=== PATIENT | male | born 1940 | race Caucasian/White ===

== ENCOUNTER 2020-11-09 10:28 | Emergency (ER) | payer MEDICARE ==
[~2020-11-09] VITALS: Ht 172.7 cm; Wt 68.0 kg
[2020-11-09] MEDS ORDERED: PIPERACILLIN/TAZOBACTAM 4.5 GM in IV NORMAL SALINE 50ML 50 ML IV ONE (11:15)
[2020-11-09] MEDS ORDERED: IV NORMAL SALINE 1,000ML 1,000 ML IV ONE (11:15)
[2020-11-09 11:23] LABS: BASO # 0.1 x10^3/uL (0.0-0.2); BASO % 1 % (0-3); EOS # 0.1 x10^3/uL (0.0-0.7); EOS % 1 % (0-3); HEMATOCRIT 37.2 % (39.0-53.0); LYMPH # 1.2 x10^3/uL (1.0-4.8); LYMPH % 10 % (24-48); MEAN CORPUSCULAR HEMOGLOBIN 25 pg (25-35); MEAN CORPUSCULAR HGB CONC 32 g/dL (31-37); MEAN CORPUSCULAR VOLUME 78 fL (79-100); MONO # 0.6 x10^3/uL (0.0-1.1); MONO % 5 % (0-9); NEUT % 83 % (31-73); PLATELET COUNT 489 x10^3/uL (140-400); RED CELL DISTRIBUTION WIDTH 14.2 % (11.5-14.5)
[2020-11-09 11:28] LABS: CALCIUM 9.2 mg/dL (8.5-10.1); CREATININE 1.4 mg/dL (0.7-1.3); POTASSIUM 4.2 mmol/L (3.5-5.1)
[2020-11-09 11:34] LABS: ALBUMIN 2.7 g/dL (3.4-5.0); ALBUMIN/GLOBULIN RATIO 0.5 (1.0-1.7); TOTAL BILIRUBIN 0.8 mg/dL (0.2-1.0); TOTAL PROTEIN 7.7 g/dL (6.4-8.2)
[2020-11-09] MEDS ORDERED: IV NORMAL SALINE 50ML 50 ML ONE (13:15)
[2020-11-09] MEDS ORDERED: PIPERACILLIN/TAZOBACTAM 4.5 GM VIAL IV ONE (13:16)
--- NOTE | 2020-11-09 13:38 | RAD ---
STUDY: CT of the bilateral lower extremities without contrast INDICATION: Wounds. Infection. COMPARISON: None. TECHNIQUE: Axial CT imaging of the bilateral lower extremities performed without contrast. The field- of-view includes the distal femoral diaphyses through the feet. Coronal and sagittal reformats were o btained. One or more of the following individualized dose reduction techniques were utilized for this examinat ion: 1. Automated exposure control 2. Adjustment of the mA and/or kV according to patient size 3. Use of iterative reconstruction technique. FINDINGS: Subcutaneous fatty reticulation predominantly along the dorsal aspect of the distal thighs to the kne es. Ill-defined popliteal fossa edema bilaterally. On both the right and left below the knees fatty r eticulation becomes circumferential. At the feet, edema is greatest dorsally and slightly more pronou nced on the right. Limited assessment for a drainable fluid collection without contrast. At no specif ic location throughout either lower extremity is there a focal area of confluent fluid attenuation th at would suggest an abscess. No soft tissue gas. At the ventral margin of the more distal lower legs on the right more so than left, the superficial soft tissues are irregular which could represent supe rficial ulceration. Only mild apparent subfascial edema such as superficial to the biceps femoris on both the right and left and mainly along the medial gastrocnemius on both sides. Muscular attenuation is relatively homogeneous. Mild scattered calcific atherosclerosis. Small right and trace left knee joint effusions. Right more so than left knee arthrosis on the right there is greatest involvement of the medial and patellofemor al compartments. No acute fracture, aggressive periostitis or acute-appearing erosion. IMPRESSION: 1. Subcutaneous fatty reticulation circumferentially about the lower legs on the right and left and mostly along the dorsal aspect of the distal thighs and dorsal aspect of the right more so than left feet. This is nonspecific for bland edema or cellulitis. Limited assessment for a drainable fluid col lection without intravenous contrast but there is no localized fluid attenuation or gas to suggest an abscess. 2. There appear to be superficial ulcerations along the anterior aspect of the distal lower legs. Th hannah would be better assessed with visual inspection but appear shallow. No CT manifestations of osteo myelitis. 3. No definitive findings to suggest necrotizing fasciitis noting that this is a clinical diagnosis. Electronically signed by: ARAMIS MARQUEZ MD (11/09/2020 1:36 PM) [facility]
--- NOTE | 2020-11-09 13:41 | RAD ---
PQRS Compliance Statement: One or more of the following individualized dose reduction techniques were utilized for this examinat ion: 1. Automated exposure control 2. Adjustment of the mA and/or kV according to patient size 3. Use of iterative reconstruction technique CT abdomen/pelvis without contrast 11/09/2020 11:33 AM INDICATION: Wound infection COMPARISON: None available TECHNIQUE: Multiple axial CT images of the abdomen and pelvis were obtained without intravenous contr ast. Coronal and sagittal reformats are provided. FINDINGS: Calcified granuloma identified within the right middle lobe and right lower lobe. Lung bases are othe rwise clear. Heart size within normal limits. Small hiatal hernia. Evaluation of solid abdominal visc era is limited by lack of intravenous contrast. Liver, spleen, right adrenal gland, pancreas and gall bladder are normal in appearance. There is fusiform thickening of the medial limb of the left adrenal gland and nodular thickening of the lateral limb of left adrenal gland (15 Hounsfield units), indete rminate. This nodule measures 1.3 x 1.3 cm. Abdominal aorta is normal in course and caliber with mode rate calcified atheromatous plaque. There are no pathologically enlarged lymph nodes in the abdomen. Bilateral borderline inguinal lymph nodes are identified measuring up to 12 mm by short axis in the r ight frontal region (series 2, image 111. There is a 9 mm nonobstructing calculus in inferior pole th e right kidney. There is a 2 mm nonobstructing calculus in interpolar right kidney. Simple renal leanna ical cyst identified in the medial interpolar left kidney measuring 7 mm. There is a simple renal cor tical cyst in the lateral interpolar left kidney measuring 10 mm. There is no hydronephrosis. There a re calculi within the dependent portion of the urinary bladder versus calcification of the bladder wa ll (series 2, image 110). Prostatomegaly measuring 5.5 x 5.4 cm in transverse dimensions. Moderate st ool noted within the rectum. There is mild colonic diverticulosis. No adjacent inflammatory changes a re identified. Appendix is normal in appearance. Urinary bladder is mildly distended measuring 11.0 x 9.3 x 12.7 cm. No suspicious osseous abnormality is identified. Mild sacral decubitus skin thickenin g with subcutaneous edema without ulceration or abscess. IMPRESSION: 1. There is distention of the urinary bladder measuring 11.0 x 9.3 x 12.7 cm. Bladder calculi identif ied within the dependent portion of the urinary bladder. This could represent calcification of the bl adder wall. Further evaluation with cystoscopy could be of benefit. Constellation of findings could r eflect chronic outlet obstruction. 2. Prostatomegaly. 3. Nodular thickening of the left adrenal gland is indeterminate measuring 1.3 x 1.3 cm. Further eval uation with adrenal mass protocol CT is recommended. 4. Nonobstructing calculus in inferior pole the right kidney measuring 9 mm. No hydronephrosis. 5. Small hiatal hernia. 6. Mild colonic diverticulosis. 7. Mild sacral decubitus skin thickening with subcutaneous edema without abscess. Electronically signed by: Nina Elmore MD (11/09/2020 1:39 PM) [id number]
--- NOTE | 2020-11-09 16:38 | PHYS DOC ---
Past History Past Medical History: No Pertinent History Past Surgical History: Other Additional Past Surgical Histo: hernia repair Alcohol Use: None Adult General Chief Complaint Chief Complaint: SKIN PROBLEM HPI HPI Patient is 80-year-old male who presents to the emergency room from home for wounds on bilateral lower extremities. Patient states these wounds have been there for several months and it progressively gotten worse. According to EMS his house appears to be the house of a hoarder. They state that he was sitting in a recliner and him in the recliner were caked in urine and feces. Patient states that he is unable to walk due to the pain that shoots through his legs when he tries to walk. This has been ongoing for a while. He typically spends all of his time sitting in the recliner. That is where he sleeps during the day as well. He is complaining of being hungry. He denies any other pains. Review of Systems Review of Systems Complete ROS is negative unless otherwise documented in HPI Current Medications Current Medications Current Medications Medications (Trade) Dose Ordered Sig/Pollo Start Time Stop Time Status Last Admin Dose Admin Piperacillin Sod/ Tazobactam Sod (Zosyn) 4.5 gm STK-MED ONCE 11/09/20 13:16 11/09/20 13:16 DC Piperacillin Sod/ Tazobactam Sod 4.5 gm/Sodium Chloride 50 ml @ 100 mls/hr 1X ONCE 11/09/20 11:15 11/09/20 11:44 DC 11/09/20 13:27 100 MLS/HR Sodium Chloride 50 ml @ As Directed STK-MED ONCE 11/09/20 13:15 11/09/20 13:16 DC Allergies Allergies Allergies Coded Allergies Type Severity Reaction Last Updated Verified No Known Drug Allergies 11/09/20 No Physical Exam Physical Exam General: Awake, alert, NAD. Cachectic, well hydrated. Cooperative HEENT: Atraumatic, EOMI, PERRL, airway patent, moist oral mucosa Neck: Supple, trachea midline Respiratory: CTA bilaterally, normal effort, no wheezing/crackles CV: Tachycardic, no murmur, cap refill <2 GI: Soft, nondistended, nontender, no masses MSK: No obvious deformities Skin: Buttocks: Large decubitus ulcer that covers the lower back and bilateral buttocks without drainage. Bilateral lower extremities: Erythema that includes bilateral feet and extends up to below the knees with multiple areas of ulceration and breaking of skin from swelling, small areas of serosanguineous drainage as well as white foul-smelling drainage Neuro: A&O x3, speech NL, sensory and motor grossly intact, no focal deficits Psych: Normal affect, normal mood, not suicidal or homicidal Current Patient Data Vital Signs Vital Signs Date Time Temp Pulse Resp B/P (MAP) Pulse Ox O2 Delivery O2 Flow Rate FiO2 11/09/20 10:28 98.1 94 20 129/70 (89) 98 Room Air Lab Results Laboratory Tests Test 11/09/20 10:50 White Blood Count 12.0 x10^3/uL (4.0-11.0) H Red Blood Count 4.80 x10^6/uL (4.30-5.70) Hemoglobin 12.0 g/dL (13.0-17.5) L Hematocrit 37.2 % (39.0-53.0) L Mean Corpuscular Volume 78 fL (79-100) L Mean Corpuscular Hemoglobin 25 pg (25-35) Mean Corpuscular Hemoglobin Concent 32 g/dL (31-37) Red Cell Distribution Width 14.2 % (11.5-14.5) Platelet Count 489 x10^3/uL (140-400) H Neutrophils (%) (Auto) 83 % (31-73) H Lymphocytes (%) (Auto) 10 % (24-48) L Monocytes (%) (Auto) 5 % (0-9) Eosinophils (%) (Auto) 1 % (0-3) Basophils (%) (Auto) 1 % (0-3) Neutrophils # (Auto) 10.0 x10^3uL (1.8-7.7) H Lymphocytes # (Auto) 1.2 x10^3/uL (1.0-4.8) Monocytes # (Auto) 0.6 x10^3/uL (0.0-1.1) Eosinophils # (Auto) 0.1 x10^3/uL (0.0-0.7) Basophils # (Auto) 0.1 x10^3/uL (0.0-0.2) Sodium Level 138 mmol/L (136-145) Potassium Level 4.2 mmol/L (3.5-5.1) Chloride Level 103 mmol/L (98-107) Carbon Dioxide Level 23 mmol/L (21-32) Anion Gap 12 (6-14) Blood Urea Nitrogen 33 mg/dL (8-26) H Creatinine 1.4 mg/dL (0.7-1.3) H Estimated GFR (Cockcroft-Gault) 49.0 BUN/Creatinine Ratio 24 (6-20) H Glucose Level 111 mg/dL (70-99) H Lactic Acid Level 1.7 mmol/L (0.4-2.0) Calcium Level 9.2 mg/dL (8.5-10.1) Total Bilirubin 0.8 mg/dL (0.2-1.0) Aspartate Amino Transferase (AST) 140 U/L (15-37) H Alanine Aminotransferase (ALT) 74 U/L (16-63) H Alkaline Phosphatase 81 U/L (46-116) Total Protein 7.7 g/dL (6.4-8.2) Albumin 2.7 g/dL (3.4-5.0) L Albumin/Globulin Ratio 0.5 (1.0-1.7) L EKG EKG [] Radiology/Procedures Radiology/Procedures [] Heart Score Risk Factors: Risk Factors: DM, Current or recent (<one month) smoker, HTN, HLP, family history of CAD, obesity. Risk Scores: Risk Factors: DM, Current or recent (<one month) smoker, HTN, HLP, family history of CAD, obesity. Course & Med Decision Making Course & Med Decision Making Pertinent Labs and Imaging studies reviewed. (See chart for details) Patient is a 80-year-old male who presents to the emergency room with wounds to his bilateral lower extremities. Patient has severe cellulitis to bilateral lower extremities with breakage of the skin and multiple ulcerations. CT was done to rule out any signs of necrotizing fasciitis and shows cellulitis without necrotizing fasciitis. It does not appear that the bone is involved. Patient was given Zosyn upon arrival. He did have tachycardia which was concerning for possible sepsis. On exam patient also has a large decubitus ulcer which does not appear to be infected at this time. Calls will be made as patient is living in poor living conditions and does not appear to be taken care of himself. Patient will be admitted to [place] so his decubitus ulcer can be evaluated by surgery. I have discussed these plans with the patient. Dragon Disclaimer Dragon Disclaimer This electronic medical record was generated, in whole or in part, using a voice recognition dictation system. Departure Departure: Impression: Primary Impression: Bilateral lower leg cellulitis Additional Impressions: Decubitus ulcer FTT (failure to thrive) in adult Disposition: 02 DC/TRF OTHER SHORT TERM HOS Condition: STABLE Referrals: GORDO STEARNS MD (PCP) Problem Qualifiers NIYA ELLISON MD Nov 09, 2020 16:38
[2020-11-09 17:15] VITALS: BP 97/39
== END 2020-11-09 17:25 | disposition short-term general hospital (02) ==
LOC: ER 10:28
DX: L03.116 Cellulitis of left lower limb (principal); L03.115 Cellulitis of right lower limb; E11.622 Type 2 diabetes mellitus with other skin ulcer; L98.421 Non-pressure chronic ulcer of back limited to breakdown of skin; L98.411 Non-pressure chronic ulcer of buttock limited to breakdown of skin; R62.7 Adult failure to thrive; Z68.22 Body mass index [BMI] 22.0-22.9, adult
CPT/HCPCS: 36415; 73700; 74176; 80053; 83605; 85025; 87040; 96365; 96366; 99285; J2543; J7030

== ENCOUNTER 2022-01-06 19:19 | Emergency (ER) | payer MEDICARE ==
[~2022-01-06] VITALS: Ht 177.8 cm; Wt 55.5 kg
[~2022-01-06 19:19] MED LIST: no home medications
--- NOTE | 2022-01-06 19:49 | PHYS DOC ---
Past History Past Surgical History: Hip Replacement, Other Additional Past Surgical Histo: hernia repair Alcohol Use: None General Adult EDM: Chief Complaint: MECHANICAL FALL HPI: HPI: Patient is a 81 year old male who presents for evaluation after falling while trying to sit in his wheelchair. He has chronic weakness and ambulatory difficulty at baseline. He usually uses a walker, but he frequently uses a wheelchair for mobility. He reports that he was trying to sit in his wheelchair, he missed the seat, then fell backwards and hit the back of his head. He denies loss of consciousness. He denies premonitory symptoms. He denies neck pain. He has chronic back pain, this is unchanged. He has a superficial abrasion of his posterior scalp. He reports that his tetanus is current. He denies vision loss, dizziness, vertigo. He denies chest pain, dysp chris, palpitations, abdominal pain, nausea, vomiting. He denies numbness or tingling or new focal motor weakness. He denies fevers or chills. He denies cough. He has a chronic indwelling Dang catheter secondary to chronic urinary outlet obstruction. He has had some significant difficulty with catheter exchanges in the past. He thinks that he has had this particular catheter for at least a few weeks. He denies any fevers or chills. 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 He admits that he does not think he has been eating and drinking as well as he should. Review of Systems: Review of Systems: Constitutional: Denies fever or chills, reports generalized weakness and anorexia. Eyes: Denies change in visual acuity, denies acute vision loss HENT: Denies nasal congestion or sore throat Respiratory: Denies cough or shortness of breath Cardiovascular: Denies chest pain or edema, palpitations, syncope. GI: Denies abdominal pain, nausea, vomiting, or diarrhea : Chronic indwelling Dang catheter, cloudy, dark urine Musculoskeletal: Chronic back pain, unchanged. Denies acute back pain, denies neck pain. Denies joint pain or joint swelling Integument: Soft tissue contusion and superficial abrasion of the posterior scalp. Neurologic: Denies headache, dizziness, syncope, vertigo, loss of consciousness. He does report mild pain at his posterior scalp hematoma site, no diffuse global headache. No loss of consciousness reported. He has chronic, generalized weakness, denies acute focal weakness. Endocrine: Denies polyuria or polydipsia Lymphatic: Denies swollen glands Psychiatric: Anxiety Allergies: Allergies: Allergies Coded Allergies Type Severity Reaction Last Updated Verified I S O L A T I O N *CONTACT* Allergy Unknown 09/27/21 Yes NKMA Allergy Unknown 09/27/21 Yes Physical Exam: PE: Constitutional: He is very frail, smells of urine, chronically ill appearing, disheveled HENT: Soft tissue swelling, hematoma of the posterior scalp. Superficial abrasion of the posterior scalp, no large laceration or gaping open wound, no active bleeding. No step off or crepitus. Eyes: PERRL, EOMI, conjunctiva normal, no discharge. Sclera are anicteric. Neck: Limited range of motion secondary to chronic kyphosis, no tenderness, supple, no stridor. No midline tenderness or step off. No deformity. Cardiovascular: Tachycardic, regular, +2 radial and +2 PT pulses bilaterally. Lungs & Thorax: Mildly diminished breath sounds in bilateral bases, no R/R/W, no stridor, no tachypnea, no distress Abdomen: Abdomen is soft, non-distended, normal bowel sounds, no palpable pulsatile mass, no audible bruit, reducible, non-tender midline hernia, no palpable mass or organomegaly, no CVA tenderness : Markedly unkempt /inguinal area, with visibly soiled and malodorous adult diaper, moderate erythema of the glans and urethra Skin: Warm, dry, poor skin turgor, unkempt, malodorous, smells of urine Back: Marked kyphosis, no acute appearing deformity, no midline tenderness or step off noted Extremities: Pelvis is stable. No acute limb deformity. No LE edema. No calf tenderness. Neurologic: He is awake, alert, oriented x 3. No facial asymmetry, CN 2-12 grossly intact. He demonstrates generalized, non-focal motor weakness. He requires significant assistance with all movement. Speech is clear and fluent. Sensation is grossly intact. Psychologic: Affect is somewhat flat and intemittently anxious. He is cooperative and pleasant. Current Patient Data: Vital Signs: Vital Signs Date Time Temp Pulse Resp B/P (MAP) Pulse Ox O2 Delivery O2 Flow Rate FiO2 01/06/22 19:23 98.3 132 20 109/53 (71) 97 Room Air EKG: EKG: EKG is interpreted at 2038 Rhythm is sinus tachycardia Rate is 139 bpm [place] is left artifact Missing V6 lead No STEMI EKG is interpreted at 116 bpm Rhythm is sinus tachycardia, occasional PACs Rate is 116 bpm [place] is left No STEMI EKG is interpreted at 9 Rhythm is sinus tachycardia Rate is 127 bpm [place] is left marked artifact No STEMI Radiology/Procedures: Radiology/Procedures: IMAGING REPORT Signed PATIENT: EDIS GALAVIZ ACCOUNT: [id number] : 1940 LOCATION: ER AGE: 81 SEX: M EXAM STATUS: REG ER ORD. PHYSICIAN: CHLOE LOZOYA DO REASON: fall PROCEDURE: PORTABLE CHEST 1V Exam: Chest one view INDICATION: Fall TECHNIQUE: Frontal view of the chest Comparisons: 09/22/2021 FINDINGS: The cardiomediastinal silhouette and pulmonary vessels are within normal limits. The lung and pleural spaces are clear. IMPRESSION: No acute cardiopulmonary process. Electronically signed by: Sonya Coronado MD (01/06/2022 8:22 PM) [facility] DICTATED AND SIGNED BY: SONYA CORONADO MD DATE: 01/06/222019 CC: CHLOE LOZOYA DO; GORDO STEARNS MD ~ IMAGING REPORT Signed PATIENT: EDIS GALAVIZ ACCOUNT: [id number] : 1940 LOCATION: ER AGE: 81 SEX: M EXAM STATUS: REG ER ORD. PHYSICIAN: CHLOE LOZOYA DO REASON: fall, head injury PROCEDURE: CT HEAD AND CERVICAL SPINE WO CT scan of the head without contrast 01/06/2022 Clinical History: Fall with head injury. Technique: Unenhanced, contiguous, 5 mm axial sections were obtained through the head. One or more of the following individualized dose reduction techniques were utilized for this study: 1. Automated exposure control. 2. Adjustment of the mA and/or kV according to patient size. 3. Use of iterative reconstruction technique. Findings: Comparison study is dated 09/22/2021. There is generalized parenchymal atrophy. Areas of decreased attenuation are seen within the periventricular and subcortical white matter of both cerebral hemispheres consistent with areas of small vessel ischemic disease. Areas of encephalomalacia are seen involving both frontal lobes No acute parenchymal abnormality is seen. No extra-axial fluid collection is noted. No skull fracture is seen. Impression: No acute intracranial abnormality is seen. CT scan of the cervical spine without contrast 01/06/2022 Clinical history: Fall with neck injury. Technique: Unenhanced, contiguous, 0.625 mm axial sections were obtained through the cervical spine. 2 mm reconstructed axial and 2 mm coronal and sagittal reconstructed images were obtained. One or more of the following individualized dose reduction techniques were utilized for this study: 1. Automated exposure control. 2. Adjustment of the mA and/or kV according to patient size. 3. Use of iterative reconstruction technique. Findings: Sagittal and coronal reconstructed images demonstrate mild lateral curvature of the cervical spine, convex to the left. There is reversal the normal cervical lordosis. Degenerative changes consisting of varying degrees of disc space narrowing, vertebral endplate sclerosis and mild to moderate anterior and posterior vertebral body osteophyte formation are seen throughout the cervical disc spaces. Atherosclerotic calcification of the carotid bifurcations is noted. No fracture or subluxation cervical vertebrae seen. Degenerative changes are seen involving the uncovertebral and facet joints throughout the cervical disc spaces. Impression: No fracture or subluxation of the cervical vertebra is identified. Electronically signed by: Robin David MD (01/06/2022 9:15 PM) [id number] DICTATED AND SIGNED BY: ROBIN DAVID MD DATE: 01/06/222102 CC: CHLOE LOZOYA DO; GORDO STEARNS MD ~ Heart Score: C/O Chest Pain: No Risk Factors: Risk Factors: DM, Current or recent (<one month) smoker, HTN, HLP, family history of CAD, obesity. Risk Scores: Score 0 - 3: 2.5% MACE over next 6 weeks - Discharge Home Score 4 - 6: 20.3% MACE over next 6 weeks - Admit for Clinical Observation Score 7 - 10: 72.7% MACE over next 6 weeks - Early Invasive Strategies Course & Med Decision Making: Course & Med Decision Making Pertinent Labs and Imaging studies reviewed. (See chart for details) An IV was established. The intial IV was lost at some point time, took quite a bit of time to reestablish another IV, and then the first 2 lab draws were reportedly hemolyzed, so after the third lab draw, labs were finally resulted. This did delay diagnosis. IV fluids were ordered. I did order an initial 2 L of IV fluids. His first IV flowed quite slowly, second IV is also flowing slowly, as he keeps bending his arm and moving around. The patient's tachycardia was improving significantly, heart rate was in the low 100s in the 90s. His blood pressure is markedly improved. However, the patient's tachycardia returned in the 120s and 130s. Appears to be sinus tachycardia, I reexamined the patient multiple times, his rhythm is regular and tachycardic, not irregulaly irregular, repeat EKG shows sinus tachycardia, no acute ischemic changes. He continues to deny any chest pain or dyspnea. He reports that he feels shaky and cold. Repeat temperature is normal. Blood cultures and lactate are obtained. IV Rocephin empirically given for urinary tract infection. His initial troponin was in the 60s. Second troponin returned over 180. The patient continues, again, to deny any chest symptoms. I have recommended transfer to a higher level of care, for cardiology, urology and critical care services. The patient is amenable to this. I spoke with Dr. Smith at [facility], who accepts the patient for admission there. The patient admits to significant anxiety and stress over his illnesses and has asked for something to help with anxiety. I ordered a dose of IV Ativan, which did improve his symptoms and heart rate. Angelica Disclaimer: Angelica Disclaimer: This electronic medical record was generated, in whole or in part, using a voice recognition dictation system. Departure Departure: Impression: Primary Impression: Sepsis Qualified Codes: A41.9 - Sepsis, unspecified organism Additional Impressions: Urinary tract infection associated with indwelling urethral catheter Qualified Codes: T83.511A - Infection and inflammatory reaction due to indwelling urethral catheter, initial encounter; N39.0 - Urinary tract infection, site not specified Lactic acidosis Head injury Qualified Codes: S09.90XA - Unspecified injury of head, initial encounter Scalp contusion Qualified Codes: S00.03XA - Contusion of scalp, initial encounter Scalp abrasion Qualified Codes: S00.01XA - Abrasion of scalp, initial encounter Generalized weakness Dehydration Chronic kidney disease Qualified Codes: N18.9 - Chronic kidney disease, unspecified Tachycardia Elevated troponin Disposition: 02 SHORT TERM HOSPITAL ([facility]) Admitting Physician: Other (Dr. Smith) Condition: GUARDED Referrals: GORDO STEARNS MD (PCP) CHLOE LOZOYA DO January 06, 2022 19:49
[2022-01-06] MEDS ORDERED: IV NORMAL SALINE 1,000ML 1,000 ML IV ONE ×2 (20:00→22:00)
[2022-01-06 20:14] LABS: BASO % 0 % (0-3); EOS % 0 % (0-3); HEMATOCRIT 31.6 % (39.0-53.0); HEMOGLOBIN 10.3 g/dL (13.0-17.5); LYMPH # 0.7 x10^3/uL (1.0-4.8); LYMPH % 4 % (24-48); MEAN CORPUSCULAR HEMOGLOBIN 25 pg (25-35); MEAN CORPUSCULAR HGB CONC 33 g/dL (31-37); MEAN CORPUSCULAR VOLUME 77 fL (79-100); MONO # 0.7 x10^3/uL (0.0-1.1); MONO % 4 % (0-9); NEUT # 17.2 x10^3uL (1.8-7.7); NEUT % 92 % (31-73); PLATELET COUNT 263 x10^3/uL (140-400); RED BLOOD COUNT 4.13 x10^6/uL (4.30-5.70); RED CELL DISTRIBUTION WIDTH 18.5 % (11.5-14.5); WHITE BLOOD COUNT 18.6 x10^3/uL (4.0-11.0)
--- NOTE | 2022-01-06 20:24 | RAD ---
Exam: Chest one view INDICATION: Fall TECHNIQUE: Frontal view of the chest Comparisons: 09/22/2021 FINDINGS: The cardiomediastinal silhouette and pulmonary vessels are within normal limits. The lung and pleural spaces are clear. IMPRESSION: No acute cardiopulmonary process. Electronically signed by: Sonya Knight MD (01/06/2022 8:22 PM) [facility]
[2022-01-06 20:54] LABS: % BANDS 3 % (0-9); % LYMPHS 11 % (24-48); % MONOS 4 % (0-10); % SEGS 82 % (35-66); NUCLEATED RBC 1; PLT ESTIMATE ADEQUATE (ADEQUATE)
--- NOTE | 2022-01-06 21:17 | RAD ---
CT scan of the head without contrast 01/06/2022 Clinical History: Fall with head injury. Technique: Unenhanced, contiguous, 5 mm axial sections were obtained through the head. One or more of the following individualized dose reduction techniques were utilized for this study: 1. Automated exposure control. 2. Adjustment of the mA and/or kV according to patient size. 3. Use of iterative reconstruction technique. Findings: Comparison study is dated 09/22/2021. There is generalized parenchymal atrophy. 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 Areas of encephalomalacia are seen involving both frontal lobes No acute parench ymal abnormality is seen. No extra-axial fluid collection is noted. No skull fracture is seen. Impression: No acute intracranial abnormality is seen. CT scan of the cervical spine without contrast 01/06/2022 Clinical history: Fall with neck injury. Technique: Unenhanced, contiguous, 0.625 mm axial sections were obtained through the cervical spine. 2 mm reconstructed axial and 2 mm coronal and sagittal reconstructed images were obtained. One or more of the following individualized dose reduction techniques were utilized for this study: 1. Automated exposure control. 2. Adjustment of the mA and/or kV according to patient size. 3. Use of iterative reconstruction technique. Findings: Sagittal and coronal reconstructed images demonstrate mild lateral curvature of the cervica l spine, convex to the left. There is reversal the normal cervical lordosis. Degenerative changes con sisting of varying degrees of disc space narrowing, vertebral endplate sclerosis and mild to moderate anterior and posterior vertebral body osteophyte formation are seen throughout the cervical disc spa abdi. Atherosclerotic calcification of the carotid bifurcations is noted. No fracture or subluxation cervical vertebrae seen. Degenerative changes are seen involving the uncov ertebral and facet joints throughout the cervical disc spaces. Impression: No fracture or subluxation of the cervical vertebra is identified. Electronically signed by: Robin David MD (01/06/2022 9:15 PM) [id number]
[2022-01-06 22:56] LABS: BACTERIA,URINE MANY /HPF (0-FEW); CLARITY,URINE CLOUDY; COLOR,URINE YELLOW; GLUCOSE,URINE NEG (NEG); NITRITE,URINE NEG (NEG); SQUAMOUS EPITHELIAL CELL,UR FEW /LPF; UROBILINOGEN,URINE 0.2 mg/dL (0.2 mg/dL); WBC,URINE >40 /HPF (0-4)
[2022-01-06 22:57] LABS: CALCIUM 8.5 mg/dL (8.5-10.1); GFR 20.3
[2022-01-06 23:02] LABS: ALBUMIN 2.4 g/dL (3.4-5.0); ALBUMIN/GLOBULIN RATIO 0.6 (1.0-1.7); PHOSPHORUS 3.5 mg/dL (2.6-4.7); TOTAL BILIRUBIN 0.8 mg/dL (0.2-1.0); TOTAL PROTEIN 6.5 g/dL (6.4-8.2)
[2022-01-06 23:03] LABS: POTASSIUM 4.7 mmol/L (3.5-5.1)
[2022-01-06] MEDS ORDERED: cefTRIAXone SODIUM 1 GM VIAL ONE (23:37)
[2022-01-06] MEDS ORDERED: IV NORMAL SALINE 50ML 50 ML ONE (23:37)
[2022-01-06 23:53] VITALS: BP 163/63
[2022-01-07] MEDS ORDERED: IV NORMAL SALINE 1,000ML 1,000 ML IV ONE (00:45)
--- NOTE | 2022-01-07 03:53 | EKG ---
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
--- NOTE | 2022-01-07 03:54 | EKG ---
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
== END 2022-01-07 01:45 | disposition short-term general hospital (02) ==
LOC: ER 19:19
DX: A41.9 Sepsis, unspecified organism (principal); S00.03XA Contusion of scalp, initial encounter; T83.511A Infection and inflammatory reaction due to indwelling urethral catheter, initial encounter; N39.0 Urinary tract infection, site not specified; N18.9 Chronic kidney disease, unspecified; E87.2 Acidosis; R53.1 Weakness; E86.0 Dehydration; R00.0 Tachycardia, unspecified; R77.8 Other specified abnormalities of plasma proteins; W18.39XA Other fall on same level, initial encounter; Y93.89 Activity, other specified; Y92.89 Other specified places as the place of occurrence of the external cause; Y99.8 Other external cause status
CPT/HCPCS: 36415; 70450; 71045; 72125; 80053; 81001; 82550; 83605; 83735; 84100; 84484; 85007; 85025; 85610; 85730; 87040; 87077; 87086; 87186; 93005; 96361; 96365; 96375; 99285; J0696; J2060; J7030